=== PATIENT | female | born 1995 | race African-American/Black ===

== ENCOUNTER 2017-07-11 10:17 | Emergency (ER) | payer BC, OTHER ==
[2017-07-11 11:09] LABS: #Basophils 0.1 thou/uL (0.0-0.2); #Eosinphils 0.1 thou/uL (0.0-0.7); #Lymphocytes 1.6 thou/uL (1.20-3.40); #Monocytes 0.3 thou/uL (0.11-0.59); #Neutrophils 8.2 thou/uL (1.40-6.50); %Basophils 0.6 % (0.0-1.0); %Eosinophils 0.5 % (0.0-10.0); %Lymphocytes 15.9 % (21.0-51.0); %Monocytes 2.9 % (0.0-10.0); Hematocrit 44.8 % (36.0-47.0); Mean Platelet Volume 6.8 fL (7.4-10.4); Red Blood Cell (RBC) Count 5.35 mill/uL (4.20-5.40); White Blood Cell (WBC) Count 10.3 thou/uL (4.8-10.8)
[2017-07-11 11:32] LABS: Bilirubin Moderate (Negative); Blood, Urine Negative (Negative); Glucose, Urine (Dipstick) Negative (Negative); Ketone, Urine 15 mg/dL (Negative); Nitrite Negative (Negative); Protein, Urine (Dipstick) 100 mg/dL (Neg-Trace)
[2017-07-11 11:35] LABS: ALT (SGPT) 12 U/L (8-55); AST (SGOT) 15 U/L (5-34); Alkaline Phosphatase 57 U/L (40-150); Anion Gap 11 mmol/L (10-20); BUN (Urea Nitrogen) 6 mg/dL (7.0-18.7); Bilirubin, Total 1.8 mg/dL (0.2-1.2); Calc. Creatinine Clearance 0 mL/min (70-130); Calcium 9.2 mg/dL (7.8-10.44); Carbon Dioxide 27 mmol/L (22-29); Chloride 103 mmol/L (98-107); Estimated GFR-MDRD 88; Globulin 3.2 g/dL (2.4-3.5); Protein, Total 7.1 g/dL (6.0-8.3)
[2017-07-11 11:51] LABS: Bacteria/HPF Rare-Few HPF (None Seen); Hyaline Casts/LPF NONE SEEN LPF (0-3 Hyaline); RBC/HPF 0-3 HPF (0-3); Squamous Epithelial 0-3 HPF (0-3); WBC/HPF 0-3 HPF (0-3)
[2017-07-11] MEDS ORDERED: Ondansetron ODT 8 MG TAB ONE (12:02)
== END 2017-07-11 13:48 | disposition home or self-care (01) ==
LOC: ERS 10:17
DX: R11.2 Nausea with vomiting, unspecified (principal); Z79.899 Other long term (current) drug therapy
CPT/HCPCS: 36415; 80053; 81003; 81015; 81025; 83690; 85025; 99284

== ENCOUNTER 2017-09-03 17:57 | Emergency (ER) | payer BC ==
[2017-09-03 18:16] LABS: Bilirubin Negative (Negative); Blood, Urine Negative (Negative); Clarity Clear (Clear); Glucose, Urine (Dipstick) Negative (Negative); Leukocyte Negative (Negative); Nitrite Negative (Negative); Pregnancy Test - Urine (BHCG) POSITIVE (Negative); Pregu Control Background? CLEAR/WHITE (CLR/WHITE); Pregu Control Bar Appear? YES (CONTROL BAR); Protein, Urine (Dipstick) Negative (Neg-Trace); Urobilinogen 0.2 mg/dL (0.2-1.0)
[2017-09-03] MEDS ORDERED: Acetaminophen 500 MG TAB ONE (18:42)
== END 2017-09-03 19:15 | disposition home or self-care (01) ==
LOC: ERS 17:57
DX: O99.89 Other specified diseases and conditions complicating pregnancy, childbirth and the puerperium (principal); R51 Headache; R10.9 Unspecified abdominal pain
CPT/HCPCS: 81003; 81025

== ENCOUNTER 2017-09-18 07:50 | Emergency (ER) | payer BC ==
[2017-09-18 08:37] LABS: #Basophils 0.1 thou/uL (0.0-0.2); #Eosinphils 0.1 thou/uL (0.0-0.7); #Monocytes 0.4 thou/uL (0.11-0.59); %Basophils 2.1 % (0.0-1.0); %Eosinophils 2.2 % (0.0-10.0); %Lymphocytes 35.7 % (21.0-51.0); %Monocytes 6.9 % (0.0-10.0); %Neutrophils 53.1 % (42.0-75.0); Hemoglobin 12.6 g/dL (12.0-16.0); Mean Corpuscular HGB CONC 33.8 g/dL (32.0-36.0); Mean Corpuscular Hemoglobin 28.2 pg (27.0-31.0); Mean Corpuscular Volume 83.5 fl (81.0-99.0); Platelet Count 302 thou/uL (130-400); RBC Distribution Width 11.9 % (11.5-14.5); Red Blood Cell (RBC) Count 4.47 mill/uL (4.20-5.40); White Blood Cell (WBC) Count 5.7 thou/uL (4.8-10.8)
[2017-09-18 08:43] LABS: Bilirubin Negative (Negative); Blood, Urine Negative (Negative); Clarity CLEAR (Clear); Glucose, Urine (Dipstick) Negative (Negative); Leukocyte Trace (Negative); Nitrite Negative (Negative); Protein, Urine (Dipstick) Negative (Neg-Trace); pH, Urine 5.5 (5.0-9.0)
[2017-09-18 08:48] LABS: Bacteria/HPF 1+ HPF (None Seen); Hyaline Casts/LPF 4-6 HYALINE CAST LPF (0-3 Hyaline); Pathc Cast-AUWi Flag 1.21 (0-2.49); RBC/HPF 0-3 HPF (0-3); Squamous Epithelial 0-3 HPF (0-3)
[2017-09-18 08:59] LABS: ALT (SGPT) 10 U/L (8-55); AST (SGOT) 11 U/L (5-34); Albumin 3.9 g/dL (3.5-5.0); Alkaline Phosphatase 54 U/L (40-150); Anion Gap 12 mmol/L (10-20); BUN (Urea Nitrogen) 5 mg/dL (7.0-18.7); Bilirubin, Total 1.3 mg/dL (0.2-1.2); Calc. Creatinine Clearance 0 mL/min (70-130); Calcium 9.2 mg/dL (7.8-10.44); Carbon Dioxide 20 mmol/L (22-29); Chloride 108 mmol/L (98-107); Estimated GFR-MDRD Greater than 90; Globulin 2.6 g/dL (2.4-3.5); Glucose 66 mg/dL (70-105); Lipase 23 U/L (8-78); Potassium 3.7 mmol/L (3.5-5.1); Protein, Total 6.5 g/dL (6.0-8.3); Sodium 136 mmol/L (136-145)
== END 2017-09-18 09:55 | disposition home or self-care (01) ==
LOC: ERS 07:50
DX: O99.89 Other specified diseases and conditions complicating pregnancy, childbirth and the puerperium (principal); R63.1 Polydipsia; Z3A.01 Less than 8 weeks gestation of pregnancy
CPT/HCPCS: 36416; 80053; 81003; 81015; 83690; 85025; 96360

== ENCOUNTER 2017-11-11 22:44 | Emergency (ER) | payer BC, OTHER ==
[2017-11-11 23:47] LABS: #Basophils 0.1 thou/uL (0.0-0.2); #Eosinphils 0.1 thou/uL (0.0-0.7); #Lymphocytes 1.9 thou/uL (1.20-3.40); #Monocytes 0.5 thou/uL (0.11-0.59); #Neutrophils 8.8 thou/uL (1.40-6.50); %Basophils 0.5 % (0.0-1.0); %Eosinophils 0.5 % (0.0-10.0); %Lymphocytes 16.6 % (21.0-51.0); %Monocytes 4.2 % (0.0-10.0); %Neutrophils 78.2 % (42.0-75.0); Mean Corpuscular HGB CONC 34.6 g/dL (32.0-36.0); Mean Corpuscular Hemoglobin 28.6 pg (27.0-31.0); Mean Corpuscular Volume 82.4 fl (81.0-99.0); Mean Platelet Volume 6.4 fL (7.4-10.4); Platelet Count 319 thou/uL (130-400); RBC Distribution Width 11.8 % (11.5-14.5); White Blood Cell (WBC) Count 11.2 thou/uL (4.8-10.8)
[2017-11-11 23:50] LABS: BHCG - Serum POSITIVE (NEGATIVE); Pregs Control Background? CLEAR/WHITE (CLR/WHITE); Pregs Control Bar Appear? YES (CONTROL BAR)
[2017-11-12 00:16] LABS: Bilirubin Negative (Negative); Blood, Urine Negative (Negative); Clarity CLEAR (Clear); Glucose, Urine (Dipstick) 250 mg/dL (Negative); Leukocyte Negative (Negative); Nitrite Negative (Negative); Protein, Urine (Dipstick) Negative (Neg-Trace); Specific Gravity, Urine 1.021 (1.002-1.036)
--- NOTE | 2017-11-12 08:03 | ULT ---
PRELIMINARY REPORT/[facility]/EMERGENCY AFTER HOURS PROCEDURE: EXAM: US Uterus, Limited CLINICAL HISTORY: 21 years old, female; Pain; complicated by abdominal or pelvic pain; Lower; Second trimeste r; Gestational age or lmp: 15w2d; ; Patient HX: Pelvic cramping pain x 1 day TECHNIQUE: Real-time ultrasound of the maternal uterus (limited) with image documentation. COMPARISON: No relevant prior studies available. FINDINGS: Fetus: Single living intrauterine gestation. Heart rate: 139 bpm Presentation: Breech. Placenta: Anterior. No abruption. Amniotic fluid: Appears adequate. Anatomy: Not formally evaluated. Visualized anatomy is unremarkable. BIOMETRICS Gestational age by US: 15w2d Gestational age by LMP: 15w0d MATERNAL: Uterus: No myometrial mass. Cervix: Unremarkable as visualized. Free fluid: No significant free fluid. IMPRESSION: Single viable intrauterine . No acute findings. EXAM: US Duplex Arterial/Venous of the Pelvis, Limited CLINICAL HISTORY: 21 years old, female; Pain; complicated by abdominal or pelvic pain; Lower; Second trimeste r; Gestational age or lmp: 15w2d; ; Patient HX: Pelvic cramping pain x 1 day TECHNIQUE: Real-time duplex ultrasound scan of the arterial and venous flow of the pelvis with color Doppler michelle w and spectral waveform analysis was also performed for evaluation of pelvic and ovarian blood flow a nd torsion. COMPARISON: No relevant prior studies available. FINDINGS: Right ovary: No acute findings. No mass. Normal blood flow. No evidence of torsion. Left ovary: Left ovary not visualized. No left adnexal mass. IMPRESSION: No acute findings. Thank you for allowing us to participate in the care of your patient. Dictated and Authenticated by: Joey Allen MD 11/12/2017 1:00 AM Central Time ([place] & [place]) FINAL REPORT EMERGENT AFTER HOURS OB ULTRASOUND: Date: 11-11-17 History: Diffuse cramping and pelvic pain for one day in a patient with positive . FINDINGS: There is a single intrauterine gestation in breach presentation. Cardiac doppler demonstrates h eart tones with a heart rate of 139 beats/minute. The placenta is located anteriorly. Subjectiv baylee, there is a normal amount of amniotic fluid. The cervical length is 3.4 cm. measurements: BPD 2.9 cm 15 weeks 3 days HC 11.17 cm 15 weeks 3 days AC 9.59 cm 15 weeks 5 days FL 1.75 cm 15 weeks 1 day The estimated gestational age by ultrasound is 15 weeks 2 days with an ANITA of 9-9-18. Gestational age by the last menstrual period is 15 weeks. The visualized portions of the spine, cerebellum, stomach, and cord insertion are visualized an d demonstrate a normal sonographic appearance. Remaining anatomic structures are not well seen due to gestational age and positioning. However, no definite anomalies are seen on the pr ovided images. The right ovary demonstrates normal sonographic appearance and measures 3 cm x 1.9 cm x 1.9 cm. The l eft ovary is not visualized. No free fluid is seen in the cul-de-sac. IMPRESSION: 1. Single intrauterine gestation in breech presentation with heart tones documented. 2. Estimated gestational age by ultrasound is 15 weeks 2 days with an ANITA of 9-9-18. 3. Findings in agreement with preliminary report by [facility]. POS: [facility]
== END 2017-11-12 01:29 | disposition home or self-care (01) ==
LOC: ERS 22:44
DX: O99.89 Other specified diseases and conditions complicating pregnancy, childbirth and the puerperium (principal); R10.13 Epigastric pain; Z3A.15 15 weeks gestation of pregnancy
CPT/HCPCS: 36415; 76856; 81003; 84702; 84703; 85025; 87086; 93976

== ENCOUNTER 2017-11-25 16:10 | Emergency (ER) | payer BC, OTHER | END 2017-11-25 18:54 | disposition home or self-care (01) | LOC: ERS 16:10 | DX: T78.40XA Allergy, unspecified, initial encounter (principal) | CPT/HCPCS: 99283 ==

== ENCOUNTER 2017-12-10 23:22 | Emergency (ER) | payer BC, OTHER ==
[2017-12-11] MEDS ORDERED: diphenhydrAMINE 50 MG/ML VIAL ONE (01:35)
[2017-12-11] MEDS ORDERED: Promethazine HCl 25 MG/ML VIAL ONE (01:35)
== END 2017-12-11 04:19 | disposition home or self-care (01) ==
LOC: ERS 23:22
DX: O99.89 Other specified diseases and conditions complicating pregnancy, childbirth and the puerperium (principal); R51 Headache; Z3A.20 20 weeks gestation of pregnancy
CPT/HCPCS: 96361; 96374; 96375; J1200; J2550

== ENCOUNTER 2018-04-02 20:02 | Day surgery (SDC) | payer BC, OTHER ==
[2018-04-02 20:34] VITALS: BP 112/55; TEMP 97; BMI 26.5
--- NOTE | 2018-04-02 20:52 | PDOC.LDHP ---
Labor and Delivery H&P Chief complaint: other (Vaginal pain, no dsch) HPI: Patient of Dr Obregon Seen in triage for vaginal pain Seen at 2049 HPI: Patient of Dr Obregon, 22 yo last deliveryw as at term 2 years agom now at 35 weeks 2 days, here with vaginal pain. No dsch, no LOF, no VB, no CTX. No fever, no recent vag trauama. Review of Systems: Complete ROS completed and as per HPI Current gestational age (weeks): 35 (2 days) Due date: 05/05/18 Grav: 2 Para: 1 OB History Details: X 1 Current complications: none Abnormal US findings: No Current medications: pre-gael vitamins Previous surgical history: none Allergies/Adverse Reactions: Allergies Allergy/AdvReac Type Severity Reaction Status Date / Time No Known Allergies Allergy Verified 02/17/16 02:38 Social history: none - Physical Exam Vital signs reviewed and normal: yes (112/80 97.9 18 (p) 81(rr)) General: NAD Heart: RRR Lungs: CTAB Abdomen: gravid FHT: category 1 [place] contractions every: irritability but no CTX - Assessment vaginal pain at 35 weeks, I suspect discomforts. - Plan Plan: observation in L&D (1. Check CX, 2. I have ordered cath UA, 3. NST for now )
[2018-04-02 21:52] LABS: Bilirubin Negative (Negative); Blood, Urine Negative (Negative); Clarity CLEAR (Clear); Glucose, Urine (Dipstick) Negative (Negative); Leukocyte Negative (Negative); Nitrite Negative (Negative); Protein, Urine (Dipstick) Negative (Neg-Trace); Specific Gravity, Urine 1.014 (1.002-1.036)
--- NOTE | 2018-04-02 21:59 | PDOC.EVN ---
Event Note - Event Note Event Note: UA momspecific...no evidence UTI. I have seen her at bedside...no evidence acute problem. OK for DC home. NST reactive
== END 2018-04-02 22:15 | disposition home or self-care (01) ==
LOC: L&D/OP 20:02
PROVIDERS: ATTEND Family Medicine
DX: O99.89 Other specified diseases and conditions complicating pregnancy, childbirth and the puerperium (principal); R10.2 Pelvic and perineal pain; Z3A.35 35 weeks gestation of pregnancy
CPT/HCPCS: 81003; 99283; A4353

== ENCOUNTER 2018-10-01 19:26 | Emergency (ER) | payer BC, OTHER ==
[2018-10-01] MEDS ORDERED: Acetaminophen 500 MG TAB ONE (20:18)
== END 2018-10-01 21:03 | disposition home or self-care (01) ==
LOC: ERS 19:26
DX: J10.1 Influenza due to other identified influenza virus with other respiratory manifestations (principal)
CPT/HCPCS: 87804; 99284

== ENCOUNTER 2019-02-09 15:19 | Emergency (ER) | payer BC, SELFPAY ==
[2019-02-09 16:02] LABS: #Basophils 0.1 thou/uL (0.0-0.2); #Lymphocytes 2.2 thou/uL (1.20-3.40); #Monocytes 0.4 thou/uL (0.11-0.59); #Neutrophils 4.6 thou/uL (1.40-6.50); %Basophils 0.9 % (0.0-1.0); %Eosinophils 0.7 % (0.0-10.0); %Lymphocytes 29.7 % (21.0-51.0); %Monocytes 5.4 % (0.0-10.0); %Neutrophils 63.3 % (42.0-75.0); Hemoglobin 11.9 g/dL (12.0-16.0); Mean Corpuscular Hemoglobin 28.8 pg (27.0-31.0); Mean Corpuscular Volume 82.4 fL (78.0-98.0); Mean Platelet Volume 6.7 fL (7.4-10.4); Platelet Count 366 thou/uL (130-400); Red Blood Cell (RBC) Count 4.13 mill/uL (4.20-5.40); White Blood Cell (WBC) Count 7.2 thou/uL (4.8-10.8)
[2019-02-09 16:28] LABS: ALT (SGPT) 9 U/L (8-55); AST (SGOT) 13 U/L (5-34); Albumin 3.9 g/dL (3.5-5.0); Alkaline Phosphatase 67 U/L (40-150); Anion Gap 11 mmol/L (10-20); BUN (Urea Nitrogen) 11 mg/dL (7.0-18.7); Calc. Creatinine Clearance 0 mL/min (70-130); Calcium 9.1 mg/dL (7.8-10.44); Carbon Dioxide 27 mmol/L (22-29); Chloride 105 mmol/L (98-107); Estimated GFR-MDRD Greater than 90; Globulin 3.5 g/dL (2.4-3.5); Glucose 79 mg/dL (70-105); Lipase 16 U/L (8-78); Potassium 3.8 mmol/L (3.5-5.1); Protein, Total 7.4 g/dL (6.0-8.3); Sodium 139 mmol/L (136-145)
[2019-02-09 17:01] LABS: BHCG - Serum Negative (NEGATIVE); Pregs Control Background? CLEAR/WHITE (CLR/WHITE); Pregs Control Bar Appear? YES (CONTROL BAR)
== END 2019-02-09 17:22 | disposition home or self-care (01) ==
LOC: ERS 15:19
DX: R10.11 Right upper quadrant pain (principal)
CPT/HCPCS: 36415; 80053; 83690; 84703; 85025

== ENCOUNTER 2020-09-06 19:26 | Emergency (ER) | payer OTHER, SELFPAY ==
[2020-09-06 20:12] LABS: Bilirubin Negative (Negative); Clarity Turbid (Clear); Glucose, Urine (Dipstick) Normal (Negative); Ketone, Urine Negative (Negative); Leukocyte 500 Leu/uL (Negative); Nitrite Negative (Negative); Protein, Urine (Dipstick) 20 mg/dL (Neg-Trace); RBC/HPF 21-50 HPF (0-3); Specific Gravity, Urine 1.026 (1.002-1.036); WBC/HPF Greater than 50 HPF (0-3)
[2020-09-06 20:13] LABS: Bacteria/HPF 1+ HPF (None Seen)
[2020-09-06 20:14] LABS: Blood, Urine 1+ (Negative); Pregnancy Test - Urine (BHCG) Negative (Negative); Pregu Control Background? CLEAR/WHITE (CLR/WHITE); Pregu Control Bar Appear? YES (CONTROL BAR); Specific Gravity 1.026 (1.002-1.036)
[2020-09-06 21:20] LABS: #Basophils 0.1 thou/uL (0.0-0.2); #Eosinphils 0.2 thou/uL (0.0-0.7); #Lymphocytes 2.5 thou/uL (1.20-3.40); #Monocytes 0.5 thou/uL (0.11-0.59); #Neutrophils 2.1 thou/uL (1.40-6.50); %Basophils 1.5 % (0.0-1.0); %Eosinophils 4.2 % (0.0-10.0); %Lymphocytes 46.3 % (21.0-51.0); %Monocytes 8.5 % (0.0-10.0); %Neutrophils 39.6 % (42.0-75.0); Hemoglobin 12.9 g/dL (12.0-16.0); Mean Corpuscular HGB CONC 33.6 g/dL (32.0-36.0); Mean Corpuscular Hemoglobin 28.6 pg (27.0-31.0); Mean Corpuscular Volume 85.1 fL (78.0-98.0); Mean Platelet Volume 7.3 fL (7.4-10.4); Platelet Count 246 thou/uL (130-400); RBC Distribution Width 11.9 % (11.5-14.5); Red Blood Cell (RBC) Count 4.49 mill/uL (4.20-5.40); White Blood Cell (WBC) Count 5.3 thou/uL (4.8-10.8)
[2020-09-06 21:44] LABS: ALT (SGPT) 10 U/L (8-55); AST (SGOT) 12 U/L (5-34); Albumin 3.5 g/dL (3.5-5.0); Alkaline Phosphatase 59 U/L (40-110); Anion Gap 12 mmol/L (10-20); BUN (Urea Nitrogen) 6 mg/dL (7.0-18.7); Bilirubin, Total 0.6 mg/dL (0.2-1.2); Calc. Creatinine Clearance 0 mL/min (70-130); Calcium 8.5 mg/dL (7.8-10.44); Carbon Dioxide 23 mmol/L (22-29); Chloride 110 mmol/L (98-107); Globulin 2.9 g/dL (2.4-3.5); Glucose 111 mg/dL (70-105); Lipase 46 U/L (8-78); Potassium 3.9 mmol/L (3.5-5.1); Protein, Total 6.4 g/dL (6.0-8.3); Sodium 141 mmol/L (136-145)
[2020-09-06] MEDS ORDERED: Mag-Al 1200 mg/1200 mg/30 ML UDCUP ONE (22:06)
[2020-09-06] MEDS ORDERED: Lidocaine Viscous Sol 2% 15 ml UD Cup ONE (22:06)
[2020-09-06] MEDS ORDERED: Lidocaine 1% PF 5 ML VIAL ONE (22:18)
[2020-09-06] MEDS ORDERED: cefTRIAXone\\ROCEPHIN 500 MG VIAL ONE (22:18)
[2020-09-07 21:52] LABS: Chlam.trachomatis by PCR,Urine Not Detected (NotDetected)
== END 2020-09-06 23:00 | disposition home or self-care (01) ==
LOC: ERS 19:26
DX: N39.0 Urinary tract infection, site not specified (principal)
CPT/HCPCS: 36415; 80053; 81003; 81015; 81025; 83690; 85025; 87077; 87086; 87491; 87591; 96372; 99284; J0696

== ENCOUNTER 2020-10-08 10:24 | Emergency (ER) | payer SELFPAY ==
[2020-10-08 11:26] LABS: Bilirubin Negative (Negative); Blood, Urine 1+ (Negative); Clarity Turbid (Clear); Glucose, Urine (Dipstick) Normal (Negative); Ketone, Urine Negative (Negative); Leukocyte 500 Leu/uL (Negative); Nitrite Negative (Negative); Protein, Urine (Dipstick) 30 mg/dL (Neg-Trace); RBC/HPF Greater than 50 HPF (0-3); Specific Gravity, Urine 1.029 (1.002-1.036); WBC/HPF Greater than 50 HPF (0-3); pH, Urine 6.5 (5.0-9.0)
[2020-10-08 11:28] LABS: Bacteria/HPF 1+ HPF (None Seen)
[2020-10-08 11:29] LABS: Pregnancy Test - Urine (BHCG) Negative (Negative); Pregu Control Background? CLEAR/WHITE (CLR/WHITE); Pregu Control Bar Appear? YES (CONTROL BAR); Specific Gravity 1.029 (1.002-1.036)
[2020-10-11 21:57] LABS: Chlamydia by PCR Not Detected (NotDetected); GC by PCR Not Detected (NotDetected)
== END 2020-10-08 13:10 | disposition home or self-care (01) ==
LOC: ERS 10:24
DX: N30.90 Cystitis, unspecified without hematuria (principal); N89.8 Other specified noninflammatory disorders of vagina
CPT/HCPCS: 81003; 81015; 81025; 87480; 87491; 87510; 87591; 87660; 99283

== ENCOUNTER 2021-07-18 21:38 | Emergency (ER) | payer SELFPAY ==
[2021-07-18 22:37] LABS: Bacteria/HPF None Seen HPF (None Seen); Bilirubin Negative (Negative); Blood, Urine Trace (Negative); Clarity Clear (Clear); Glucose, Urine (Dipstick) Normal (Negative); Ketone, Urine Trace mg/dL (Negative); Leukocyte Negative Leu/uL (Negative); Nitrite Negative (Negative); Protein, Urine (Dipstick) 20 mg/dL (Neg-Trace); Specific Gravity, Urine 1.031 (1.002-1.036); WBC/HPF 0-3 HPF (0-3); pH, Urine 5.5 (5.0-9.0)
[2021-07-18 22:38] LABS: Pregnancy Test - Urine (BHCG) Negative (Negative); Pregu Control Background? CLEAR/WHITE (CLR/WHITE); Pregu Control Bar Appear? YES (CONTROL BAR); Specific Gravity 1.031 (1.002-1.036)
== END 2021-07-18 23:47 | disposition home or self-care (01) ==
LOC: ERS 21:38
DX: R10.30 Lower abdominal pain, unspecified (principal)
CPT/HCPCS: 81003; 81015; 81025; 87086; 99284